=== PATIENT | male | born 1930 | race Caucasian/White ===

== ENCOUNTER 2016-07-01 04:53 | Emergency (ER) | payer MEDICARE, BC ==
[~2016-07-01 04:53] MED LIST: ACIP20TA6 PO; DOXE25CA2 PO; GABA300 PO; MECL-62 PO; METO50TA PO; VITA200017 PO; VITA500T49 PO; [UNRECOGNIZED DRUG - CODE] PO
[2016-07-01 04:55] VITALS: BP 165/80; PULSE 67; RESP 16; TEMP 98.4; O2SAT 96
--- NOTE | 2016-07-01 05:07 | PD ---
HPI . Head injury Chief Complaint: Fall Time Seen by Provider: 04:59 Travel History International Travel<30 days: No Contact w/Intl Traveler<30days: No Traveled to known affect area: No History of Present Illness HPI Patient presents to us by [facility] for evaluation of an injury to his head. The patient is unsteady on his feet. This has been a chronic issue for him for the last year or so. He got up during the middle of night to go to the bathroom and fell and hit his head on the top. There was no associated loss of consciousness. He states that he is not on any blood thinning medication. He has no symptoms of head injury such as blurred vision or nausea or confusion. He denies neck pain. He believes that his last tetanus shot was about 5 years ago. 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) Cardiac Catheterization: No Cardiovascular Problems: Yes (IRREGULAR HEARTBEAT, PVC'S) High Cholesterol: No Congestive Heart Failure: No Diabetes: No Endocrine: No Gastrointestinal Disorders: Yes (ACID REFLUX, HIATAL HERNIA, HX OF ESOPHAGEAL DILATION) Genitourinary: Yes (BPH) Hepatitis: No Hiatal Hernia: Yes Immune Disorder: No Medical other: Yes (POSSIBLE HERNIA L SIDE) Musculoskeletal: Yes (SCOLIOSIS, ARTHRITIS, LOWER BACK PAIN, STIFF NECK) Neurologic: No Psychiatric: Yes (SLIGHTLY CLAUSTROPHOBIC ) Reproductive: No Respiratory: Yes (SLEEP APNEA, HASN'T USED CPAP FOR SEVERAL YEARS) Thyroid Disease: No Past Surgical History Abdominal Surgery: Yes (EVELIN INGUINAL HERNIA REPAIRS) AICD: No Coronary Artery Bypass Graft: No Eye Surgery: Yes (BILATERAL CATARACT SURGERY) Joint Replacement: No Pacemaker: No Other Surgery: Yes (INGUINAL HERNIA REPAIR X 2) Social History Alcohol Use: Yes (OCC) Tobacco Use: No Substance Use: No Allergies-Medications (Allergen,Severity, Reaction): Coded Allergies: Penicillin (Unverified Adverse Reaction, Intermediate, STOMACH CRAMPING, ) Reported Meds & Prescriptions Reported Meds & Active Scripts Active Reported Namenda (Memantine) 10 Mg Tab 10 Mg PO BID Levothyroxine (Levothyroxine Sodium) 25 Mcg Tab 25 Mcg PO DAILY Citrucel (Methylcellulose) 500 Mg Tab 2 Tab PO DAILY PRN Vitamin B-12 (Cyanocobalamin) 500 Mcg Tab 500 Mcg PO DAILY Vitamin D (Cholecalciferol) 1,000 Unit Tab 1,000 Units PO DAILY Aciphex (Rabeprazole Sodium) 20 Mg Tab 20 Mg PO DAILY Metoprolol Tartrate 25 Mg Tab 25 Mg PO DAILY Neurontin (Gabapentin) 600 Mg Tab 600 Mg PO DAILY Doxepin (Doxepin HCl) 75 Mg Cap 75 Mg PO DAILY Review of Systems Except as stated in HPI: all other systems reviewed are Neg General / Constitutional: No: Fever, Chills Eyes: No: Blurred Vision HENT: Positive: Headaches, No: Lightheadedness Cardiovascular: No: Chest Pain or Discomfort Respiratory: No: Shortness of Breath Gastrointestinal: No: Nausea, Vomiting, Diarrhea Genitourinary: Positive: Nocturia Neurologic: Positive: Other (unsteady on his feet) Physical Exam Narrative GENERAL: Pleasant, elderly man who is in no acute distress. SKIN: Warm and dry. 2 cm laceration on the top of his head HEAD: Atraumatic. Normocephalic. No contusion or skull deformity noted. EYES: Pupils equal and round. Extraocular movements are intact. ENT: No nasal bleeding or discharge. Mucous membranes pink and moist. NECK: Trachea midline. Neck is nontender with full range of motion. CARDIOVASCULAR: Regular rate and rhythm. RESPIRATORY: No accessory muscle use. GASTROINTESTINAL: Abdomen soft, non-tender, nondistended. MUSCULOSKELETAL: No obvious deformities. No edema. NEUROLOGICAL: Awake and alert. No obvious cranial nerve deficits. Motor grossly within normal limits. Normal speech. PSYCHIATRIC: Appropriate mood and affect; insight and judgment normal. Data Data Last Documented VS Vital Signs Date Time Temp Pulse Resp B/P Pulse Ox O2 Delivery O2 Flow Rate FiO2 07/01/16 04:58 67 18 96 07/01/16 04:55 98.4 165/[address] Brain W/O Iv Contrast(Rout) (07/01/16 05:00) Lidocai-Epi 1%-1:100,000 Inj (Xylocaine- (07/01/16 06:00) MDM Medical Decision Making Medical Screen Exam Complete: Yes Emergency Medical Condition: Yes Differential Diagnosis My differential diagnosis of head trauma includes but is not limited to scalp contusion, concussion, intracerebral hemorrhage. Narrative Course Patient presents for evaluation of an injury to his head. He does not have any signs or symptoms suggestive of a closed head injury. CT of his head is negative for acute injury. Procedures Procedure Narrative LACERATION LOCATION: Scalp LENGTH: 2 cm NUMBER OF STITCHES/RASHMI: 2 REPAIR: The area of the laceration was prepped with Betadine and sterilely draped. The laceration was infiltrated with 4 cc of 1% lidocaine with epi. The wound was closed using 2 rashmi. This was a single layer repair. Patient tolerated the procedure well. Diagnosis Primary Impression: Scalp laceration Qualified Code: S01.01XA - Scalp laceration, initial encounter Patient Instructions: General Instructions, Laceration (DC) Additional Instructions: Clean the wound twice daily with soap and water. Apply a thin layer of Neosporin ointment after you wash it. See your doctor in 7 days for staple removal. Seek care sooner for redness, drainage, warmth, unusual pain. Disposition: 01 DISCHARGE HOME Condition: Stable Marcelle Salamanca MD Jul 01, 2016 05:07
[2016-07-01] MEDS ORDERED: VITA100064 PO (05:08)
[2016-07-01] MEDS ORDERED: NAME10TA PO (05:08)
[2016-07-01] MEDS ORDERED: METO25TA3 PO (05:08)
[2016-07-01] MEDS ORDERED: LEVO25TA4 PO (05:08)
[2016-07-01] MEDS ORDERED: DOXE75CA2 PO (05:08)
[2016-07-01] MEDS ORDERED: ACIP20TA6 PO (05:08)
[2016-07-01] MEDS ORDERED: NEUR600T PO (05:08)
[2016-07-01] MEDS ORDERED: VITA500T4 PO (05:08)
[2016-07-01] MEDS ORDERED: CITR500T PO (05:08)
--- NOTE | 2016-07-01 05:37 | RADRPT ---
EXAM DATE/TIME: 07/01/2016 05:20 [facility] COMPARISON: No previous studies available for comparison. INDICATIONS : Fall, head pain. RADIATION DOSE: 42.37 CTDIvol (mGy) MEDICAL HISTORY : Cardiovascular disease. Gastroesophageal reflux disease. hiatal hernia, melanoma SURGICAL HISTORY : inguinal hernia repair. ENCOUNTER: Initial ACUITY: 1 day PAIN SCALE: 8/10 LOCATION: cranial TECHNIQUE: Multiple contiguous axial images were obtained of the head. Using automated exposure control and adj ustment of the mA and/or kV according to patient size, radiation dose was kept as low as reasonably a chievable to obtain optimal diagnostic quality images. FINDINGS: CEREBRUM: The ventricles are normal for age. No evidence of midline shift, mass lesion, hemorrhage or acute in farction. No extra-axial fluid collections are seen. POSTERIOR FOSSA: The cerebellum and brainstem are intact. The 4th ventricle is midline. The cerebellopontine angle i s unremarkable. EXTRACRANIAL: Polyps or retention cysts in the maxillary sinuses. SKULL: The calvaria is intact. No evidence of skull fracture. CONCLUSION: No acute intracranial findings. Juan Luis Chacko MD on July 01, 2016 at 5:34 Board Certified Radiologist. This report was verified electronically.
[2016-07-01] MEDS ORDERED: LIDOCAINE 1%/EPINEPHrine 1:100,000 SOLN 20 ML VIAL INFIL ONE (06:00)
== END 2016-07-01 06:39 | disposition home or self-care (01) ==
LOC: NEPC 04:53
DX: S01.01XA Laceration without foreign body of scalp, initial encounter (principal); N40.0 Benign prostatic hyperplasia without lower urinary tract symptoms; G47.30 Sleep apnea, unspecified; K21.9 Gastro-esophageal reflux disease without esophagitis; W19.XXXA Unspecified fall, initial encounter; Y92.009 Unspecified place in unspecified non-institutional (private) residence as the place of occurrence of the external cause; Y99.8 Other external cause status
CPT/HCPCS: 12001; 70450

== ENCOUNTER 2016-12-23 06:34 | Emergency (ER) | payer MEDICARE, BC ==
[~2016-12-23 06:34] MED LIST changes: +CITR500T PO; -DOXE25CA2 PO; +DOXE75CA2 PO; -GABA300 PO; +LEVO25TA4 PO; -MECL-62 PO; +METO25TA3 PO; -METO50TA PO; +NAME10TA PO; +NEUR600T PO; +VITA100064 PO; -VITA200017 PO; +VITA500T4 PO; -VITA500T49 PO; -[UNRECOGNIZED DRUG - CODE] PO
[2016-12-23 06:35] VITALS: BP 165/76; PULSE 78; RESP 16; TEMP 97.8; O2SAT 95
--- NOTE | 2016-12-23 07:06 | PD ---
HPI Chief Complaint: Fall Time Seen by Provider: 06:55 Travel History International Travel<30 days: No Contact w/Intl Traveler<30days: No Traveled to known affect area: No History of Present Illness HPI The patient is a 86-year-old male who presents to emergency department after mechanical fall. The patient states she fell earlier today in the bathroom, striking his head on either the tub or tile floor. The patient denies any loss of consciousness, does complain of a mild headache. He does note a laceration to the posterior aspect of the head, is unsure of his last tetanus shot. The patient denies any acute neck pain or back pain, does have a history of scoliosis with chronic pain. The patient denies any upper or lower extremity pain. He denies any loss of consciousness and denies taking any anticoagulants. Symptoms are mild, exacerbated after falling, and there are no acute alleviating factors. Patient denies any chest pain, palpitations, shortness breath, nausea, or vomiting. 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) Cardiac Catheterization: No Cardiovascular Problems: Yes (IRREGULAR HEARTBEAT, PVC'S) High Cholesterol: No Congestive Heart Failure: No Diabetes: No Endocrine: No Gastrointestinal Disorders: Yes (ACID REFLUX, HIATAL HERNIA, HX OF ESOPHAGEAL DILATION) Genitourinary: Yes (BPH) Hepatitis: No Hiatal Hernia: Yes Immune Disorder: No Medical other: Yes (POSSIBLE HERNIA L SIDE) Musculoskeletal: Yes (SCOLIOSIS, ARTHRITIS, LOWER BACK PAIN, STIFF NECK) Neurologic: No Psychiatric: Yes (SLIGHTLY CLAUSTROPHOBIC ) Reproductive: No Respiratory: Yes (SLEEP APNEA, HASN'T USED CPAP FOR SEVERAL YEARS) Thyroid Disease: No Past Surgical History Abdominal Surgery: Yes (EVELIN INGUINAL HERNIA REPAIRS) AICD: No Coronary Artery Bypass Graft: No Eye Surgery: Yes (BILATERAL CATARACT SURGERY) Joint Replacement: No Pacemaker: No Other Surgery: Yes (INGUINAL HERNIA REPAIR X 2) Social History Alcohol Use: Yes (OCC) Tobacco Use: No Substance Use: No Allergies-Medications (Allergen,Severity, Reaction): Coded Allergies: penicillin G (Unverified Adverse Reaction, Intermediate, STOMACH CRAMPING , 12/23/16) Reported Meds & Prescriptions Reported Meds & Active Scripts Active Reported Namenda (Memantine) 10 Mg Tab 10 Mg PO BID Levothyroxine (Levothyroxine Sodium) 25 Mcg Tab 25 Mcg PO DAILY Citrucel (Methylcellulose) 500 Mg Tab 2 Tab PO DAILY PRN Vitamin B-12 (Cyanocobalamin) 500 Mcg Tab 500 Mcg PO DAILY Vitamin D (Cholecalciferol) 1,000 Unit Tab 1,000 Units PO DAILY Aciphex (Rabeprazole Sodium) 20 Mg Tab 20 Mg PO DAILY Metoprolol Tartrate 25 Mg Tab 25 Mg PO DAILY Neurontin (Gabapentin) 600 Mg Tab 600 Mg PO DAILY Doxepin (Doxepin HCl) 75 Mg Cap 75 Mg PO DAILY Review of Systems Except as stated in HPI: all other systems reviewed are Neg HENT: Positive: Headaches, No: Lightheadedness, Neck Pain Cardiovascular: No: Chest Pain or Discomfort, Palpitations, Syncope Respiratory: No: Shortness of Breath Gastrointestinal: No: Nausea, Vomiting, Abdominal Pain Musculoskeletal: No: Pain Neurologic: Positive: Headache, No: Syncope, Focal Abnormalities, Change in Mentation Physical Exam Narrative GENERAL: Awake, alert, pleasant 86-year-old male who appears his stated age and is in no acute respiratory distress. SKIN: Focused skin assessment warm/dry. HEAD: 2.5 cm laceration to the occipital region which is diagonal, no acute bleeding. EYES: Pupils equal and round. No injection or drainage. ENT: No nasal bleeding or discharge. Mucous membranes pink and moist. NECK: Trachea midline. No JVD. No tenderness of the cervical vertebrae. CARDIOVASCULAR: Regular rate and rhythm. No murmur appreciated. RESPIRATORY: No accessory muscle use. Clear to auscultation. Breath sounds equal bilaterally. GASTROINTESTINAL: Abdomen soft, non-tender, nondistended. Back: Scoliosis noted. No tenderness over the thoracic or lumbar vertebra. MUSCULOSKELETAL: No obvious deformities. No clubbing. No cyanosis. No edema. Moves all 4 extremities without difficulty. NEUROLOGICAL: Awake and alert. No obvious cranial nerve deficits. Motor grossly within normal limits. Normal speech. Nonfocal. PSYCHIATRIC: Appropriate mood and affect; insight and judgment normal. Data Data Last Documented VS Vital Signs Date Time Temp Pulse Resp B/P (MAP) Pulse Ox O2 Delivery O2 Flow Rate FiO2 12/23/16 07:26 59 16 160/74 (102) 96 Room Air 12/23/16 06:[address] Brain W/O Iv Contrast(Rout) (9/7/17 ) Tetanus/Diphtheria Tox Adult (Tetanus/Di (12/23/16 07:15) MDM Medical Decision Making Medical Screen Exam Complete: Yes Emergency Medical Condition: Yes Medical Record Reviewed: Yes Interpretation(s) CT of the head reveals tiny old lacunar infarct within the anterior limb of the left internal capsule. Minimal periventricular and subcortical white matter small vessel ischemic changes bilaterally. No acute infarct, acute hemorrhage, mass effect, or extra-axial fluid collections. Mucous retention cyst within the right maxillary sinus. Differential Diagnosis Differential diagnosis includes skull fracture, laceration, closed head injury, intracranial hemorrhage, subarachnoid hemorrhage, abrasion. Narrative Course CT of the brain was obtained. The patient's tetanus shot was updated. The patient's laceration was irrigated with sterile saline and cleaned with Betadine and irrigated once again. The laceration was closed in single layer fashion using rashmi. CT reveals chronic changes, no acute infarct, hemorrhage , or mass effect. The patient will be provided a copy of his CT results at discharge. He is advised to have his rashmi removed in 5-7 days. Return if symptoms worsen or progress. Procedures Procedure Narrative LACERATION LOCATION: Occipital scalp LENGTH: 2.5 cm NUMBER OF STITCHES/RASHMI: 4 REPAIR: The area of the laceration was prepped with Betadine and sterilely draped. The wound was copiously irrigated and explored without evidence of foreign body, tendon injury or neurovascular injury. The wound was closed using rashmi. This was a single layer repair. A sterile dressing was applied. The patient was advised to keep the dressing clean and dry. Patient tolerated the procedure well. Diagnosis Primary Impression: Scalp laceration Qualified Codes: S01.01XA - Laceration without foreign body of scalp, initial encounter Additional Impression: Closed head injury Qualified Codes: S09.90XA - Unspecified injury of head, initial encounter Patient Instructions: General Instructions Additional Instructions: Staple removal 5-7 days. Return if symptoms worsen or progress. Please provide the patient a copy of his CT results at discharge. Follow-up with your primary physician. Med/Other Pt SpecificInfo: No Change to Meds Disposition: 01 DISCHARGE HOME Condition: Stable Casimiro Pearson MD Dec 23, 2016 07:06
[2016-12-23] MEDS ORDERED: TETANUS/DIPHTHERIA TOXOID ADULT 0.5 ML VIAL IM ONE (07:15)
[2016-12-23 07:26] VITALS: BP 160/74; PULSE 59; RESP 16; O2SAT 96
--- NOTE | 2016-12-23 08:23 | RADRPT ---
EXAM DATE/TIME: 12/23/2016 07:34 [facility] COMPARISON: CT BRAIN W/O CONTRAST, July 01, 2016, 5:20. INDICATIONS : Trauma, fall backwards. RADIATION DOSE: 69.21 CTDIvol (mGy) MEDICAL HISTORY : None SURGICAL HISTORY : None. ENCOUNTER: Initial ACUITY: 1 day PAIN SCALE: 4/10 LOCATION: cranial TECHNIQUE: Multiple contiguous axial images were obtained of the head. Using automated exposure control and adj ustment of the mA and/or kV according to patient size, radiation dose was kept as low as reasonably a chievable to obtain optimal diagnostic quality images. DICOM format image data is available electro nically for review and comparison. FINDINGS: CEREBRUM: The ventricles are normal for age. No evidence of midline shift, mass lesion, hemorrhage or acute in farction. No extra-axial fluid collections are seen. Tiny old lacunar infarct is noted within the an terior limb of the left internal capsule. Minimal periventricular and subcortical white matter small vessel ischemic changes are noted bilaterally. POSTERIOR FOSSA: The cerebellum and brainstem are intact. The 4th ventricle is midline. The cerebellopontine angle i s unremarkable. EXTRACRANIAL: The visualized portion of the orbits is intact. Mucous retention cyst is noted within the right maxil jamel sinus. SKULL: The calvaria is intact. No evidence of skull fracture. CONCLUSION: 1. 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 2. Minimal periventricular and subcortical white matter small vessel ischemic changes bilaterally. 3. No acute infarct, acute hemorrhage, mass effect or extra-axial fluid collections. 4. Mucous retention cyst within the right maxillary sinus. Cornell Bearden MD on December 23, 2016 at 8:18 Board Certified Radiologist. This report was verified electronically.
[2016-12-23 08:54] VITALS: BP 153/72
== END 2016-12-23 08:55 | disposition home or self-care (01) ==
LOC: NEPE 06:34
DX: S01.01XA Laceration without foreign body of scalp, initial encounter (principal); W19.XXXA Unspecified fall, initial encounter; Z23 Encounter for immunization
CPT/HCPCS: 12001; 70450; 90471; 90714

== ENCOUNTER 2017-02-03 21:28 | Emergency (ER) | payer MEDICARE, BC ==
[~2017-02-03] VITALS: Ht 182.9 cm; Wt 63.5 kg
[2017-02-03 21:33] VITALS: BP 160/88; PULSE 83; RESP 14; TEMP 98.1; O2SAT 96
[2017-02-03] MEDS ORDERED: SODIUM CHLORIDE 0.9% FLUSH 10 ML FLUSH IV FLUSH PRN (21:45)
[2017-02-03] MEDS ORDERED: SODIUM CHLORID 0.9% 500 ML INJ 500 ML IV ONE (22:00)
[2017-02-03 22:02] VITALS: O2SAT 97
--- NOTE | 2017-02-03 22:08 | PD ---
HPI Chief Complaint: GI Complaint Time Seen by Provider: 21:44 Travel History International Travel<30 days: No Contact w/Intl Traveler<30days: No Traveled to known affect area: No History of Present Illness HPI Patient comes in complaining of rectal spasms, stool oozing out of him, and difficulty urinating that began this morning. Patient has a history of C. difficile 6 months ago. Patient denies any recent antibiotic use, fevers, abdominal pain, nausea, vomiting, chest pain, shortness breath, or back pain. Patient reports multiple falls over the past 6 months most recently 2 weeks ago. Patient denies any numbness or tingling anywhere. Patient denies anything making this better or worse. Patient states he was constipated yesterday and believes he may have strained to hard causing this to happen. Patient only complains of intermittent spasming in his rectum without radiation. Denies any other pain anywhere. 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) Cardiac Catheterization: No Cardiovascular Problems: Yes (IRREGULAR HEARTBEAT, PVC'S) High Cholesterol: No Congestive Heart Failure: No Diabetes: No Endocrine: No Gastrointestinal Disorders: Yes (ACID REFLUX, HIATAL HERNIA, HX OF ESOPHAGEAL DILATION) Genitourinary: Yes (BPH) Hepatitis: No Hiatal Hernia: Yes Immune Disorder: No Inguinal Hernia: Yes (REPAIR X3) Medical other: Yes (POSSIBLE HERNIA L SIDE) Musculoskeletal: Yes (SCOLIOSIS, ARTHRITIS, LOWER BACK PAIN, STIFF NECK) Psychiatric: Yes (SLIGHTLY CLAUSTROPHOBIC ) Respiratory: Yes (SLEEP APNEA, HASN'T USED CPAP FOR SEVERAL YEARS) Thyroid Disease: No Past Surgical History Abdominal Surgery: Yes (EVELIN INGUINAL HERNIA REPAIRS) AICD: No Coronary Artery Bypass Graft: No Eye Surgery: Yes (BILATERAL CATARACT SURGERY) Joint Replacement: No Pacemaker: No Social History Alcohol Use: Yes (OCC) Tobacco Use: No Substance Use: No Allergies-Medications (Allergen,Severity, Reaction): Coded Allergies: penicillin G (Unverified Adverse Reaction, Intermediate, STOMACH CRAMPING , 12/23/16) Reported Meds & Prescriptions Reported Meds & Active Scripts Active Reported Namenda (Memantine) 10 Mg Tab 10 Mg PO BID Levothyroxine (Levothyroxine Sodium) 25 Mcg Tab 25 Mcg PO DAILY Citrucel (Methylcellulose) 500 Mg Tab 2 Tab PO DAILY PRN Vitamin B-12 (Cyanocobalamin) 500 Mcg Tab 500 Mcg PO DAILY Vitamin D (Cholecalciferol) 1,000 Unit Tab 1,000 Units PO DAILY Aciphex (Rabeprazole Sodium) 20 Mg Tab 20 Mg PO DAILY Metoprolol Tartrate 25 Mg Tab 25 Mg PO DAILY Neurontin (Gabapentin) 600 Mg Tab 600 Mg PO DAILY Doxepin (Doxepin HCl) 75 Mg Cap 75 Mg PO DAILY Review of Systems Except as stated in HPI: all other systems reviewed are Neg Physical Exam Narrative GENERAL: Well-developed, well nourished, in no acute distress, and non-ill appearing. SKIN: Focused skin assessment warm and dry. HEAD: Atraumatic. Normocephalic. EYES: Pupils equal and round. EOMI. No scleral icterus. No injection or drainage. ENT: No nasal bleeding or discharge. Mucous membranes pink and moist. NECK: Trachea midline. Supple. No nuclear rigidity. CARDIOVASCULAR: Regular rate and rhythm. No murmur appreciated. RESPIRATORY: No accessory muscle use. No respiratory distress. Decreased breath sounds throughout. Breath sounds equal bilaterally. GASTROINTESTINAL: Abdomen soft, non-tender, nondistended, and no guarding. Hepatic and splenic margins not palpable. Normal bowel sounds 4. No pulsatile mass. RECTAL EXAM: No masses or tenderness, stool is brown. Patient has rectal tone but states he feels that he is not controlling it very well. MUSCULOSKELETAL: No obvious deformities. No clubbing. No cyanosis. No edema. Full range of motion. NEUROLOGICAL: Awake and alert. No obvious cranial nerve deficits. Motor grossly within normal limits. Normal speech. PSYCHIATRIC: Appropriate mood and affect; insight and judgment normal. Data Data Last Documented VS Vital Signs Date Time Temp Pulse Resp B/P (MAP) Pulse Ox O2 Delivery O2 Flow Rate FiO2 02/03/17 22:02 97 Room Air 02/03/17 21:33 98.1 83 14 160/88 (112) Orders Orders Complete Blood Count With Diff (02/03/17 21:44) Comprehensive Metabolic Panel (02/03/17 21:44) Lipase (02/03/17 21:44) Lactic Acid (02/03/17 21:44) Prothrombin Time / Inr (Pt) (02/03/17 21:44) Act Partial Throm Time (Ptt) (02/03/17 21:44) Urinalysis - C+S If Indicated (02/03/17 21:44) Ct Abd/Pel W/O Iv Contrast (02/03/17 21:44) Iv Access Insert/Monitor (02/03/17 21:44) Ecg Monitoring (02/03/17 21:44) Oximetry (02/03/17 21:44) Sodium Chloride 0.9% Flush (Ns Flush) (02/03/17 21:45) Electrocardiogram (02/03/17 21:44) Cath For Specimen (02/03/17 21:44) C Diff Toxin Pcr (02/03/17 21:44) Sodium Chlorid 0.9% 500 Ml Inj (Ns 500 M (02/03/17 22:00) Mri L Spine W&W/O Contrast (02/03/17 ) Labs Laboratory Tests Test 02/03/17 21:50 02/03/17 21:55 White Blood Count 8.8 TH/MM3 Red Blood Count 4.24 MIL/MM3 Hemoglobin 12.0 GM/DL Hematocrit 36.3 % Mean Corpuscular Volume 85.8 FL Mean Corpuscular Hemoglobin 28.4 PG Mean Corpuscular Hemoglobin Concent 33.1 % Red Cell Distribution Width 13.4 % Platelet Count 245 TH/MM3 Mean Platelet Volume 8.1 FL Neutrophils (%) (Auto) 83.3 % Lymphocytes (%) (Auto) 10.4 % Monocytes (%) (Auto) 5.7 % Eosinophils (%) (Auto) 0.1 % Basophils (%) (Auto) 0.5 % Neutrophils # (Auto) 7.3 TH/MM3 Lymphocytes # (Auto) 0.9 TH/MM3 Monocytes # (Auto) 0.5 TH/MM3 Eosinophils # (Auto) 0.0 TH/MM3 Basophils # (Auto) 0.0 TH/MM3 CBC Comment DIFF FINAL Differential Comment Prothrombin Time 11.1 SEC Prothromb Time International Ratio 1.0 RATIO Activated Partial Thromboplast Time 30.4 SEC Urine Color YELLOW Urine Turbidity CLEAR Urine pH 6.5 Urine Specific [place] 1.014 Urine Protein TRACE mg/dL Urine Glucose (UA) NEG mg/dL Urine Ketones 10 mg/dL Urine Occult Blood NEG Urine Nitrite NEG Urine Bilirubin NEG Urine Urobilinogen LESS THAN 2.0 MG/DL Urine Leukocyte Esterase NEG Urine RBC 3 /hpf Urine WBC 1 /hpf Urine Mucus FEW /lpf Microscopic Urinalysis Comment CULT NOT INDICATED Blood Urea Nitrogen 11 MG/DL Creatinine 0.57 MG/DL Random Glucose 89 MG/DL Albumin 3.9 GM/DL Calcium Level 8.7 MG/DL Aspartate Amino Transf (AST/SGOT) 21 U/L Sodium Level 129 MEQ/L Potassium Level 3.4 MEQ/L Chloride Level 94 MEQ/L Carbon Dioxide Level 25.4 MEQ/L Anion Gap 10 MEQ/L Estimat Glomerular Filtration Rate 136 ML/MIN Lipase 77 U/L Lactic Acid Level 1.1 mmol/L MDM Medical Decision Making Medical Screen Exam Complete: Yes Emergency Medical Condition: Yes Interpretation(s) EKG reviewed by Dr. Aguilar shows sinus rhythm with ventricular rate of 75. No STEMI. Differential Diagnosis C. difficile, diverticulitis, bowel obstruction, urinary retention, UTI, cauda equina syndrome, electrolyte Abnormality, other Narrative Course Patient was seen and examined. Initial laboratory and radiological studies were ordered. Patient was given IV fluids. Patient signed out to Dr. Aguilar at the end of my shift. Please see her documentation for final diagnosis and disposition. [facility] Point of Care Internal Pos. & Neg. Controls: Passed Fecal Specimen Occult Blood: Negative Comment Verbal consent was obtained. Digital rectal exam was performed. Stool specimen applied and test interpreted between 1 and 3 minutes of application and the result was negative. Internal Controls: Both positive and negative controls were validated. endodontist Delmis was present during this exam. Bryan Hernandez Feb 03, 2017 22:08
[2017-02-03 22:19] LABS: BLOOD, URINE NEG (NEG); COMMENT (UR) CULT NOT INDICATED; CULTURE IF INDICATED CULT NOT INDICATED; GLUCOSE,URINE NEG (NEG); KETONE, URINE 10 mg/dL (NEG); MUCUS URINE FEW /lpf (OCC); NITRITE,URINE NEG (NEG); PH, URINE 6.5 (5.0-8.5); URINE COLOR YELLOW (YELLW/STRAW)
[2017-02-03 22:23] LABS: AUTOMATED NEUTROPHIL # 7.3 TH/MM3 (1.8-7.7); BASOPHIL % 0.5 % (0.0-2.0); EOSINOPHIL % 0.1 % (0.0-4.0); HEMATOCRIT 36.3 % (39.0-51.0); HEMO FLAGS DIFF FINAL; LYMPH % 10.4 % (9.0-44.0); LYMPHOCYTE # 0.9 TH/MM3 (1.0-4.8); MEAN CELL VOLUME 85.8 FL (80.0-100.0); MEAN CORPUSCULAR HEMOGLOBIN 28.4 PG (27.0-34.0); MEAN CORPUSCULAR HGB CONC 33.1 % (32.0-36.0); MONO % 5.7 % (0.0-8.0); NEUT % 83.3 % (16.0-70.0); PLATELET COUNT 245 TH/MM3 (150-450); RED BLOOD COUNT 4.24 MIL/MM3 (4.50-5.90); RED CELL DISTRIBUTION WIDTH 13.4 % (11.6-17.2); WHITE BLOOD COUNT 8.8 TH/MM3 (4.0-11.0)
[2017-02-03 22:27] LABS: APTT (PATIENT) 30.4 SEC (24.3-30.1); PROTHROMBIN TIME - PATIENT 11.1 SEC (9.8-11.6)
[2017-02-03 22:31] LABS: ANION GAP 10 MEQ/L (5-15); AST (GOT) 21 U/L (15-37); BICARBONATE 25.4 MEQ/L (21.0-32.0); BLOOD UREA NITROGEN 11 MG/DL (7-18); CHLORIDE 94 MEQ/L (98-107); GLOMERULAR FILTRATION RATE 136 ML/MIN (>89); POTASSIUM 3.4 MEQ/L (3.5-5.1); SODIUM (NA) 129 MEQ/L (136-145)
[2017-02-03 22:35] LABS: ALKALINE PHOSPHATASE 76 U/L (45-117); ALT (GPT) 11 U/L (12-78); TOTAL BILIRUBIN ADULT 0.9 MG/DL (0.2-1.0)
--- NOTE | 2017-02-03 23:03 | RADRPT ---
EXAM DATE/TIME: 02/03/2017 22:45 [facility] COMPARISON: No previous studies available for comparison. INDICATIONS : Lower abdominal pain with diarrhea and dysuria. ORAL CONTRAST: No oral contrast ingested. RADIATION DOSE: 6.64 CTDIvol (mGy) MEDICAL HISTORY : Hernia, hiatal. Gastroesophageal reflux disease. Benign prostatic hyperplasia, (BPH)Scoliosis. SURGICAL HISTORY : Inguinal hernia repair. ENCOUNTER: Initial ACUITY: 1 day PAIN SCALE: 5/10 LOCATION: Bilateral lower quadrant TECHNIQUE: Volumetric scanning of the abdomen and pelvis was performed. Using automated exposure control and ad justment of the mA and/or kV according to patient size, radiation dose was kept as low as reasonably achievable to obtain optimal diagnostic quality images. DICOM format image data is available electro nically for review and comparison. FINDINGS: LOWER LUNGS: The visualized lower lungs are clear. LIVER: Homogeneous density without lesion. There is no dilation of the biliary tree. Multiple calcified gal lstones. SPLEEN: Normal size without lesion. PANCREAS: Within normal limits. KIDNEYS: Normal in size and shape. There is no mass, stone, or hydronephrosis. ADRENAL GLANDS: Within normal limits. VASCULAR: There is no aortic aneurysm. Atherosclerotic changes of the abdominal aorta. BOWEL/MESENTERY: Copious amount of stool throughout the large bowel. Scattered diverticulosis. There is no free intrap eritoneal air or fluid. ABDOMINAL WALL: Within normal limits. RETROPERITONEUM: There is no lymphadenopathy. BLADDER: No wall thickening or mass. REPRODUCTIVE: Within normal limits. INGUINAL: There is no lymphadenopathy or hernia. MUSCULOSKELETAL: Degenerative changes and scoliosis of the thoracolumbar spine. CONCLUSION: 1. Cholelithiasis. 2. Constipation and diverticulosis. No diverticulitis. 3. Degenerative changes and scoliosis. Roshan Ray MD on February 03, 2017 at 22:59 Board Certified Radiologist. This report was verified electronically.
--- NOTE | 2017-02-03 23:08 | RADRPT ---
EXAM DATE/TIME: 02/03/2017 22:26 [facility] COMPARISON: No previous studies available for comparison. INDICATIONS : Myelopathy. MEDICAL HISTORY : Sleep apnea. Gastroesophageal reflux disease. Benign prostatic hyperplasia, (BPH) Melanoma. Squamous cell carcinoma. SURGICAL HISTORY : Inguinal hernia repair. Cataracts. ENCOUNTER: Initial ACUITY: 1 day PAIN SCORE: 5/10 LOCATION: Lower back. TECHNIQUE: Multiplanar multisequence MRI of the lumbar spine was performed without contrast. FINDINGS: The most caudal appearing lumbar vertebra is numbered as L5. VERTEBRAE: Homogeneous signal, with the exception of degenerative endplate changes at L1 to, L2-3, L4-5 and L5-S 1 levels. Scoliotic changes. Degenerative disc disease at L2-3, L3-4, L4-5 and L5-S1 levels. Minimal retrolisthesis L5 on S1. 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 CONUS: Normal level and configuration. T12-L1: The thecal sac has a normal diameter. No evidence of disc bulge or protrusion. The neural foramina are patent bilaterally. L1-L2: Mild broad-based disc bulge abuts the thecal sac without canal stenosis. The neural foramina are pat ent bilaterally. L2-L3: Mild broad-based disc bulge abuts the thecal sac without canal stenosis. Mild neuroforaminal narrowin g bilaterally. L3-L4: Mild broad-based disc bulge abuts the thecal sac without canal stenosis. The neural foramina are pat ent bilaterally. L4-L5: Mild broad-based disc bulge abuts the thecal sac without canal stenosis. Mild left and moderate right narrowing of the neural foramen. L5-S1: Minimal retrolisthesis. Mild broad-based disc bulge abuts the thecal sac without canal stenosis. Mode rate narrowing of the neural foramen bilaterally but greater on the right. CONCLUSION: 1. Multilevel disc bulges without canal stenosis. 2. Scattered neural femoral narrowing as described above. 3. Scoliosis and chronic degenerative endplate changes at multiple levels as described above. Roshan Ray MD on February 03, 2017 at 23:02 Board Certified Radiologist. This report was verified electronically.
[2017-02-03 23:44] VITALS: BP 121/65; PULSE 76; RESP 16; O2SAT 97
[2017-02-04] MEDS ORDERED: METR-1 PO (01:31)
--- NOTE | 2017-02-04 01:32 | PD ---
Physical Exam Narrative I, Dr. Aguilar, have reviewed the advance practice practitioner's documentation and am in agreement, met with the patient face to face, made the diagnosis, and the medical decision making was done by me. *My assessment and Findings: Patient is a 86 year old male who comes in complaining of diarrhea and rectal spasm. Exam shows abdomen is soft and nontender. Patient is mentating well. Data Data Last Documented VS Vital Signs Date Time Temp Pulse Resp B/P (MAP) Pulse Ox O2 Delivery O2 Flow Rate FiO2 02/03/17 23:44 76 16 121/65 (83) 97 Room Air 02/03/17 21:33 98.1 Orders Orders Complete Blood Count With Diff (02/03/17 21:44) Comprehensive Metabolic Panel (02/03/17 21:44) Lipase (02/03/17 21:44) Lactic Acid (02/03/17 21:44) Prothrombin Time / Inr (Pt) (02/03/17 21:44) Act Partial Throm Time (Ptt) (02/03/17 21:44) Urinalysis - C+S If Indicated (02/03/17 21:44) Ct Abd/Pel W/O Iv Contrast (02/03/17 21:44) Iv Access Insert/Monitor (02/03/17 21:44) Ecg Monitoring (02/03/17 21:44) Oximetry (02/03/17 21:44) Sodium Chloride 0.9% Flush (Ns Flush) (02/03/17 21:45) Electrocardiogram (02/03/17 21:44) Cath For Specimen (02/03/17 21:44) C Diff Toxin Pcr (02/03/17 21:44) Sodium Chlorid 0.9% 500 Ml Inj (Ns 500 M (02/03/17 22:00) Mri L Spine W/O Contrast (02/03/17 ) Labs Laboratory Tests Test 02/03/17 21:50 02/03/17 21:55 White Blood Count 8.8 TH/MM3 Red Blood Count 4.24 MIL/MM3 Hemoglobin 12.0 GM/DL Hematocrit 36.3 % Mean Corpuscular Volume 85.8 FL Mean Corpuscular Hemoglobin 28.4 PG Mean Corpuscular Hemoglobin Concent 33.1 % Red Cell Distribution Width 13.4 % Platelet Count 245 TH/MM3 Mean Platelet Volume 8.1 FL Neutrophils (%) (Auto) 83.3 % Lymphocytes (%) (Auto) 10.4 % Monocytes (%) (Auto) 5.7 % Eosinophils (%) (Auto) 0.1 % Basophils (%) (Auto) 0.5 % Neutrophils # (Auto) 7.3 TH/MM3 Lymphocytes # (Auto) 0.9 TH/MM3 Monocytes # (Auto) 0.5 TH/MM3 Eosinophils # (Auto) 0.0 TH/MM3 Basophils # (Auto) 0.0 TH/MM3 CBC Comment DIFF FINAL Differential Comment Prothrombin Time 11.1 SEC Prothromb Time International Ratio 1.0 RATIO Activated Partial Thromboplast Time 30.4 SEC Urine Color YELLOW Urine Turbidity CLEAR Urine pH 6.5 Urine Specific [place] 1.014 Urine Protein TRACE mg/dL Urine Glucose (UA) NEG mg/dL Urine Ketones 10 mg/dL Urine Occult Blood NEG Urine Nitrite NEG Urine Bilirubin NEG Urine Urobilinogen LESS THAN 2.0 MG/DL Urine Leukocyte Esterase NEG Urine RBC 3 /hpf Urine WBC 1 /hpf Urine Mucus FEW /lpf Microscopic Urinalysis Comment CULT NOT INDICATED Blood Urea Nitrogen 11 MG/DL Creatinine 0.57 MG/DL Random Glucose 89 MG/DL Total Protein 6.7 GM/DL Albumin 3.9 GM/DL Calcium Level 8.7 MG/DL Alkaline Phosphatase 76 U/L Aspartate Amino Transf (AST/SGOT) 21 U/L Alanine Aminotransferase (ALT/SGPT) 11 U/L Total Bilirubin 0.9 MG/DL Sodium Level 129 MEQ/L Potassium Level 3.4 MEQ/L Chloride Level 94 MEQ/L Carbon Dioxide Level 25.4 MEQ/L Anion Gap 10 MEQ/L Estimat Glomerular Filtration Rate 136 ML/MIN Lipase 77 U/L Lactic Acid Level 1.1 mmol/L [facility] Supervised Visit with MARYANN: Yes Narrative Course CT abd/pelvis shows no acute abnormalities. MRI Lumbar spine shows no cord compression. Labs show Sodium 129, no other acute abnormalities. Patient advised to drink plenty of fluids. Given a prescription for Flagyl. Advised to follow up with his primary doctor. Advised to return to the ED as needed for any worsening symptoms. Diagnosis Primary Impression: Diarrhea Qualified Codes: R19.7 - Diarrhea, unspecified Patient Instructions: Acute Diarrhea (ED), General Instructions Additional Instruction: Drink plenty of fluids. Follow-up with her doctor. Take all the antibiotic. Return to the ED as needed for any worsening symptoms. Scripts Metronidazole (Flagyl) 500 Mg Tab 500 MG PO TID for Infection for 7 Days, TAB 0 Refills Prov: Erika Aguilar MD 02/04/17 Disposition: 01 DISCHARGE HOME Condition: Stable Erika Aguilar MD Feb 04, 2017 01:32
--- NOTE | 2017-02-04 21:25 | EKG ---
Date Performed: 02/03/2017 Time Performed: 22:13:18 PTAGE: 86 years EKG: Sinus rhythm NORMAL ECG PREVIOUS TRACING : 02/03/2017 21.37 Compared to prior tracing no significant change DOCTOR: Dami David Interpretating Date/Time 02/04/2017 21:25:04
--- NOTE | 2017-02-04 21:28 | EKG ---
Date Performed: 02/03/2017 Time Performed: 21:37:40 PTAGE: 86 years EKG: Sinus rhythm WITH SINUS ARRHYTHMIA NORMAL ECG PREVIOUS TRACING : 11/08/2013 13.28 Compared to prior tracing no significant change DOCTOR: Dami David Interpretating Date/Time 02/04/2017 21:26:36
[2017-02-05] MEDS ORDERED: ZOFR4TAB PO (00:14)
[2017-02-05] MEDS ORDERED: NORC5TAB PO (00:15)
== END 2017-02-04 02:08 | disposition home or self-care (01) ==
LOC: NEPC 21:28
DX: K59.4 Anal spasm (principal); R19.7 Diarrhea, unspecified; R29.6 Repeated falls; I49.8 Other specified cardiac arrhythmias; Z85.820 Personal history of malignant melanoma of skin
CPT/HCPCS: 72148; 74176; 80053; 81001; 83605; 83690; 85025; 85610; 85730; 93005; 96360; 99285; J7040; P9612

== ENCOUNTER 2017-02-04 22:53 | Emergency (ER) | payer MEDICARE, BC ==
[~2017-02-04 22:53] MED LIST changes: +METR-1 PO
[2017-02-04] MEDS ORDERED: SODIUM CHLORIDE 0.9% FLUSH 10 ML FLUSH IV FLUSH PRN (23:00)
[2017-02-04 23:09] VITALS: BP 134/76; PULSE 90; RESP 16; TEMP 98; O2SAT 100
[2017-02-04 23:16] VITALS: PULSE 90; RESP 16; O2SAT 100
[2017-02-04 23:27] LABS: AUTOMATED NEUTROPHIL # 9.4 TH/MM3 (1.8-7.7); BASOPHIL % 0.2 % (0.0-2.0); HEMATOCRIT 38.5 % (39.0-51.0); HEMO FLAGS DIFF FINAL; LYMPH % 9.7 % (9.0-44.0); LYMPHOCYTE # 1.1 TH/MM3 (1.0-4.8); MEAN CELL VOLUME 86.3 FL (80.0-100.0); MEAN CORPUSCULAR HEMOGLOBIN 28.3 PG (27.0-34.0); MEAN CORPUSCULAR HGB CONC 32.8 % (32.0-36.0); MONO % 6.6 % (0.0-8.0); NEUT % 83.5 % (16.0-70.0); PLATELET COUNT 273 TH/MM3 (150-450); RED BLOOD COUNT 4.46 MIL/MM3 (4.50-5.90); RED CELL DISTRIBUTION WIDTH 13.5 % (11.6-17.2); WHITE BLOOD COUNT 11.3 TH/MM3 (4.0-11.0)
--- NOTE | 2017-02-04 23:28 | PD ---
HPI Chief Complaint: GI Complaint Time Seen by Provider: 22:57 Travel History International Travel<30 days: No Contact w/Intl Traveler<30days: No Traveled to known affect area: No History of Present Illness HPI Patient is an 86-year-old male presents emergency department for second evaluation in 2 days for diarrhea. Conveyed by his . He states since leaving the hospital yesterday he's been having increasing cramping in the left lower quadrant. Patient had complete workup yesterday including blood abdominal CT. Patient was prescribed Flagyl which she has not tried taking because he states he doesn't think he keep any food down. Also endorsing some mild nausea. States his diarrhea has been dark brown. Has a history of C. difficile in the past. Symptoms are mild to moderate, gradually worsening, context as above, there is associated nausea without vomiting, no fevers. 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) Cardiac Catheterization: No Cardiovascular Problems: Yes (IRREGULAR HEARTBEAT, PVC'S) High Cholesterol: No Congestive Heart Failure: No Diabetes: No Endocrine: No Gastrointestinal Disorders: Yes (ACID REFLUX, HIATAL HERNIA, HX OF ESOPHAGEAL DILATION) Genitourinary: Yes (BPH) Hepatitis: No Hiatal Hernia: Yes Immune Disorder: No Inguinal Hernia: Yes (REPAIR X3) Medical other: Yes (POSSIBLE HERNIA L SIDE) Musculoskeletal: Yes (SCOLIOSIS, ARTHRITIS, LOWER BACK PAIN, STIFF NECK) Psychiatric: Yes (SLIGHTLY CLAUSTROPHOBIC ) Respiratory: Yes (SLEEP APNEA, HASN'T USED CPAP FOR SEVERAL YEARS) Thyroid Disease: No Past Surgical History Abdominal Surgery: Yes (EVELIN INGUINAL HERNIA REPAIRS) AICD: No Coronary Artery Bypass Graft: No Eye Surgery: Yes (BILATERAL CATARACT SURGERY) Joint Replacement: No Pacemaker: No Social History Alcohol Use: Yes (OCC) Tobacco Use: No Substance Use: No Allergies-Medications (Allergen,Severity, Reaction): Coded Allergies: penicillin G (Unverified Adverse Reaction, Intermediate, STOMACH CRAMPING , 02/04/17) Reported Meds & Prescriptions Reported Meds & Active Scripts Active Freedom (Hydrocodone-Acetaminophen) 5-325 mg Tab 1 Tab PO Q6H PRN Zofran (Ondansetron HCl) 4 Mg Tab 4 Mg PO Q6HR PRN Flagyl (Metronidazole) 500 Mg Tab 500 Mg PO TID 7 Days Reported Namenda (Memantine) 10 Mg Tab 10 Mg PO BID Levothyroxine (Levothyroxine Sodium) 25 Mcg Tab 25 Mcg PO DAILY Citrucel (Methylcellulose) 500 Mg Tab 2 Tab PO DAILY PRN Vitamin B-12 (Cyanocobalamin) 500 Mcg Tab 500 Mcg PO DAILY Vitamin D3 (Cholecalciferol) 1,000 Unit Tab 1,000 Units PO DAILY Aciphex (Rabeprazole Sodium) 20 Mg Tab 20 Mg PO DAILY Metoprolol Tartrate 25 Mg Tab 25 Mg PO DAILY Neurontin (Gabapentin) 600 Mg Tab 600 Mg PO DAILY Doxepin (Doxepin HCl) 75 Mg Cap 75 Mg PO DAILY Review of Systems Except as stated in HPI: all other systems reviewed are Neg Physical Exam Narrative GENERAL: Well-developed well-nourished no obvious distress SKIN: Focused skin assessment warm/dry. HEAD: Atraumatic. Normocephalic. EYES: Pupils equal and round. No scleral icterus. No injection or drainage. ENT: No nasal bleeding or discharge. Mucous membranes pink and moist. NECK: Trachea midline. No JVD. CARDIOVASCULAR: Regular rate and rhythm. No murmur appreciated. RESPIRATORY: No accessory muscle use. Clear to auscultation. Breath sounds equal bilaterally. GASTROINTESTINAL: Abdomen soft, non-tender, nondistended. Hepatic and splenic margins not palpable. No rebound no percussive tenderness, Rectal: Rectal exam shows soft stool in the rectal vault that is formed. Hemoccult negative, no tenderness, no rectal fissure, no hemorrhoids. MUSCULOSKELETAL: No obvious deformities. No clubbing. No cyanosis. No edema. NEUROLOGICAL: Awake and alert. No obvious cranial nerve deficits. Motor grossly within normal limits. Normal speech. PSYCHIATRIC: Appropriate mood and affect; insight and judgment normal. Data Data Last Documented VS Vital Signs Date Time Temp Pulse Resp B/P (MAP) Pulse Ox O2 Delivery O2 Flow Rate FiO2 02/04/17 23:16 90 16 100 Room Air 02/04/17 23:09 98.0 134/76 (95) Orders Orders Basic Metabolic Panel (Bmp) (02/04/17 22:58) Complete Blood Count With Diff (02/04/17 22:58) Iv Access Insert/Monitor (02/04/17 22:58) Ecg Monitoring (02/04/17 22:58) Oximetry (02/04/17 22:58) Sodium Chloride 0.9% Flush (Ns Flush) (02/04/17 23:00) C Diff Toxin Pcr (02/04/17 22:58) Tramadol (Ultram) (02/04/17 23:30) Sodium Chlorid 0.9% 500 Ml Inj (Ns 500 M (02/04/17 23:30) Abdomen, Kub Only (02/04/17 ) Ed Discharge Order (02/05/17 00:15) Labs Laboratory Tests Test 02/04/17 23:00 White Blood Count 11.3 TH/MM3 Red Blood Count 4.46 MIL/MM3 Hemoglobin 12.6 GM/DL Hematocrit 38.5 % Mean Corpuscular Volume 86.3 FL Mean Corpuscular Hemoglobin 28.3 PG Mean Corpuscular Hemoglobin Concent 32.8 % Red Cell Distribution Width 13.5 % Platelet Count 273 TH/MM3 Mean Platelet Volume 7.8 FL Neutrophils (%) (Auto) 83.5 % Lymphocytes (%) (Auto) 9.7 % Monocytes (%) (Auto) 6.6 % Eosinophils (%) (Auto) 0.0 % Basophils (%) (Auto) 0.2 % Neutrophils # (Auto) 9.4 TH/MM3 Lymphocytes # (Auto) 1.1 TH/MM3 Monocytes # (Auto) 0.7 TH/MM3 Eosinophils # (Auto) 0.0 TH/MM3 Basophils # (Auto) 0.0 TH/MM3 CBC Comment DIFF FINAL Differential Comment Blood Urea Nitrogen 12 MG/DL Creatinine 0.76 MG/DL Random Glucose 95 MG/DL Calcium Level 8.9 MG/DL Sodium Level 128 MEQ/L Potassium Level 4.3 MEQ/L Chloride Level 95 MEQ/L Carbon Dioxide Level 24.3 MEQ/L Anion Gap 9 MEQ/L Estimat Glomerular Filtration Rate 98 ML/MIN MDM Medical Decision Making Medical Screen Exam Complete: Yes Emergency Medical Condition: Yes Differential Diagnosis Diarrhea, C. difficile, electrolyte abnormality, mild dehydration. Narrative Course Patient roomed in emergency department, he appears well and in no distress, labs do show some mild hyponatremia. A single view of the abdomen was obtained which does show formed stool throughout the colon, possible he is having overflow diarrhea on top of chronic constipation. I recommended against Imodium which she's been using at home without relief and recommended fiber and MiraLAX instead. He is not impacted by her rectal exam, he is not faded, he is able to tolerate by mouth fluids in the emergency department. Think is reasonable for him to treat with Flagyl empirically however a C. difficile specimen was sent. Given he has formed stool high in the doubt C. difficile infection. Discussed he needs to follow up with his primary care physician, discussed return to ED criteria. He is stable for discharge. Diagnosis Primary Impression: Alternating constipation and diarrhea Additional Impression: Abdominal pain Referrals: Steven Earl MD Additional Instructions: Recommend fiber, follow-up with your primary care physician and a plumbing assembler installer. Take antibiotics as prescribed. Med/Other Pt SpecificInfo: Prescription(s) given Scripts Hydrocodone-Acetaminophen (Freedom) 5-325 mg Tab 1 TAB PO Q6H Y for PAIN, #10 TAB 0 Refills Prov: Cornell Garcia MD 02/05/17 Ondansetron (Zofran) 4 Mg Tab 4 MG PO Q6HR Y for NAUSEA OR VOMITING, #20 TAB 0 Refills Prov: Cornell Garcia MD 02/05/17 Disposition: 01 DISCHARGE HOME Condition: Stable Cornell Garcia MD Feb 04, 2017 23:28
[2017-02-04] MEDS ORDERED: traMADol HCL 50 MG TAB PO ONE (23:30)
[2017-02-04] MEDS ORDERED: SODIUM CHLORID 0.9% 500 ML INJ 500 ML IV ONE (23:30)
[2017-02-04 23:50] LABS: BICARBONATE 24.3 MEQ/L (21.0-32.0)
--- NOTE | 2017-02-05 00:02 | RADRPT ---
EXAM DATE/TIME: 02/04/2017 23:32 [facility] COMPARISON: No previous studies available for comparison. INDICATIONS : Abdomen pain. MEDICAL HISTORY : Hernia, hiatal. Gastroesophageal reflux disease. Benign prostatic hyperplasia. Scoliosis. SURGICAL HISTORY : Hernia repair, Inguinal. ENCOUNTER: Initial ACUITY: 2 days PAIN SCORE: 10/10 LOCATION: Inferior abdomen, bladder, & penis. FINDINGS: 2 AP supine views of the abdomen and pelvis were obtained and demonstrate a large amount of stool thr oughout the colon. There is no free air or mass effect. There are no abnormal calcifications. There i s a moderate scoliosis of the thoracic and lumbar spine with degenerative disc change. The bony struc tures are otherwise unremarkable. CONCLUSION: Large amount of stool throughout the colon most characteristic of constipation. Navjot Gonzalez MD on February 05, 2017 at 0:00 Board Certified Radiologist. This report was verified electronically.
[2017-02-05 00:05] LABS: POTASSIUM 4.3 MEQ/L (3.5-5.1)
[2017-02-05] MEDS ORDERED: ZOFR4TAB PO (00:14)
[2017-02-05] MEDS ORDERED: NORC5TAB PO (00:15)
== END 2017-02-05 00:35 | disposition home or self-care (01) ==
LOC: NEPC 22:53
DX: R19.7 Diarrhea, unspecified (principal); K59.00 Constipation, unspecified; R10.32 Left lower quadrant pain
CPT/HCPCS: 74000; 80048; 85025; 96360; 99284; J7040

== ENCOUNTER 2017-02-25 08:13 | Inpatient (IN) | payer MEDICARE, BC ==
[~2017-02-25] VITALS: Ht 182.9 cm; Wt 65.0 kg
[2017-02-25] VITALS (9 sets, daily range): BP systolic 123–184; BP diastolic 66–86; PULSE 69–82; RESP 16–20; TEMP 97.7–97.9; O2SAT 77–98
[~2017-02-25 08:13] MED LIST changes: +ACIP20TA19 PO; -ACIP20TA6 PO; +NORC5TAB PO; +ZOFR4TAB PO
[2017-02-25 09:03] LABS: AUTOMATED NEUTROPHIL # 4.2 TH/MM3 (1.8-7.7); BASOPHIL # 0.1 TH/MM3 (0-0.2); BASOPHIL % 1.5 % (0.0-2.0); EOSINOPHIL # 0.1 TH/MM3 (0-0.4); EOSINOPHIL % 1.6 % (0.0-4.0); HEMATOCRIT 36.4 % (39.0-51.0); HEMO FLAGS DIFF FINAL; LYMPH % 19.6 % (9.0-44.0); LYMPHOCYTE # 1.2 TH/MM3 (1.0-4.8); MEAN CORPUSCULAR HEMOGLOBIN 29.2 PG (27.0-34.0); NEUT % 67.3 % (16.0-70.0); PLATELET COUNT 231 TH/MM3 (150-450); RED BLOOD COUNT 4.23 MIL/MM3 (4.50-5.90); RED CELL DISTRIBUTION WIDTH 13.9 % (11.6-17.2); WHITE BLOOD COUNT 6.3 TH/MM3 (4.0-11.0)
[2017-02-25 09:13] LABS: INTERNATIONAL NORMALIZED RATIO 0.9 RATIO; PROTHROMBIN TIME - PATIENT 10.4 SEC (9.8-11.6)
[2017-02-25 09:18] LABS: POTASSIUM 3.7 MEQ/L (3.5-5.1)
--- NOTE | 2017-02-25 10:09 | PD ---
HPI Chief Complaint: Bleeding Time Seen by Provider: 08:46 Travel History International Travel<30 days: No Contact w/Intl Traveler<30days: No Traveled to known affect area: No History of Present Illness HPI Diagnoses an 86-year-old male with a history of hypothyroidism, hypertension, who presents here with complaints of bleeding from his varicose vein site on his right lateral ankle. According to the patient he's had a intermittent bleed of his right lower extremity from his varicose vein. He was last seen yesterday by a slack line yarder who wrapped it up and told him to come back in one week. The patient states that when he went to replace the dressing, it started to profusely bleed. states that the bed has a large amount of blood all over it. The patient has had multiple eschars, off causing bleeding. There are no other complaints at the time of my examination. 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) Cardiac Catheterization: No Cardiovascular Problems: Yes (IRREGULAR HEARTBEAT, PVC'S) High Cholesterol: No Congestive Heart Failure: No Diabetes: No Endocrine: No Gastrointestinal Disorders: Yes (ACID REFLUX, HIATAL HERNIA, HX OF ESOPHAGEAL DILATION) Genitourinary: Yes (BPH) Hepatitis: No Hiatal Hernia: Yes Immune Disorder: No Inguinal Hernia: Yes (REPAIR X3) Medical other: Yes (POSSIBLE HERNIA L SIDE) Musculoskeletal: Yes (SCOLIOSIS, ARTHRITIS, LOWER BACK PAIN, STIFF NECK) Psychiatric: Yes (SLIGHTLY CLAUSTROPHOBIC ) Respiratory: Yes (SLEEP APNEA, HASN'T USED CPAP FOR SEVERAL YEARS) Thyroid Disease: No Past Surgical History Abdominal Surgery: Yes (EVELIN INGUINAL HERNIA REPAIRS) AICD: No Coronary Artery Bypass Graft: No Eye Surgery: Yes (BILATERAL CATARACT SURGERY) Joint Replacement: No Pacemaker: No Social History Alcohol Use: No Tobacco Use: No Substance Use: No Allergies-Medications (Allergen,Severity, Reaction): Coded Allergies: penicillin G (Unverified Adverse Reaction, Intermediate, STOMACH CRAMPING , 02/04/17) Reported Meds & Prescriptions Reported Meds & Active Scripts Active Zofran (Ondansetron HCl) 4 Mg Tab 4 Mg PO Q6HR PRN Reported Namenda (Memantine) 10 Mg Tab 10 Mg PO BID Levothyroxine (Levothyroxine Sodium) 25 Mcg Tab 25 Mcg PO DAILY Citrucel (Methylcellulose) 500 Mg Tab 2 Tab PO DAILY PRN Vitamin B-12 (Cyanocobalamin) 500 Mcg Tab 500 Mcg PO DAILY Vitamin D3 (Cholecalciferol) 1,000 Unit Tab 1,000 Units PO DAILY Aciphex (Rabeprazole Sodium) 20 Mg Tab 20 Mg PO DAILY Metoprolol Tartrate 25 Mg Tab 25 Mg PO DAILY Neurontin (Gabapentin) 600 Mg Tab 600 Mg PO DAILY Doxepin (Doxepin HCl) 75 Mg Cap 75 Mg PO DAILY Review of Systems Except as stated in HPI: all other systems reviewed are Neg General / Constitutional: No: Fever, Chills HENT: No: Headaches, Lightheadedness, Neck Pain Cardiovascular: No: Chest Pain or Discomfort, Palpitations Respiratory: No: Cough, Shortness of Breath Gastrointestinal: No: Nausea, Vomiting, Abdominal Pain Musculoskeletal: Positive: Other (bleeding from the right lateral ankle at a varicosity site.), No: Weakness Skin: Positive Lesions (right lateral ankle varicose vein bleeding.) Neurologic: No: Weakness, Dizziness, Headache Physical Exam Narrative GENERAL: Well-nourished, well-developed patient, in no acute respiratory distress. SKIN: Focused skin assessment warm/dry. HEAD: Normocephalic last atraumatic. EYES: No injection or drainage. NECK: Supple, trachea midline. CARDIOVASCULAR: Regular rate and rhythm without murmurs, gallops, or rubs. RESPIRATORY: Breath sounds equal bilaterally. No accessory muscle use. GASTROINTESTINAL: Abdomen soft, non-tender, nondistended. MUSCULOSKELETAL: Chronic venous stasis changes in the bilateral lower extremity is. On examination the patient's right lateral ankle, there is a opened bleeding vein site noted just at the malleolus site. As no evidence of cellulitis. There was oozing of blood noted. NEUROLOGICAL: Awake and alert. Cranial nerves II through XII intact. Motor grossly within normal limits. Five out of 5 muscle strength in all muscle groups. Normal speech. Data Data Last Documented VS Vital Signs Date Time Temp Pulse Resp B/P (MAP) Pulse Ox O2 Delivery O2 Flow Rate FiO2 02/25/17 15:14 70 18 145/70 (95) 97 Nasal Cannula 2.00 02/25/17 08:22 97.9 Orders Orders Complete Blood Count With Diff (02/25/17 08:46) Basic Metabolic Panel (Bmp) (02/25/17 08:46) Prothrombin Time / Inr (Pt) (02/25/17 08:46) Act Partial Throm Time (Ptt) (02/25/17 08:46) Iv Access Insert/Monitor (02/25/17 08:46) Ecg Monitoring (02/25/17 08:46) Oximetry (02/25/17 08:46) Admit Order (Ed Use Only) (02/25/17 17:13) Labs Laboratory Tests Test 02/25/17 08:40 White Blood Count 6.3 TH/MM3 Red Blood Count 4.23 MIL/MM3 Hemoglobin 12.4 GM/DL Hematocrit 36.4 % Mean Corpuscular Volume 86.0 FL Mean Corpuscular Hemoglobin 29.2 PG Mean Corpuscular Hemoglobin Concent 34.0 % Red Cell Distribution Width 13.9 % Platelet Count 231 TH/MM3 Mean Platelet Volume 8.5 FL Neutrophils (%) (Auto) 67.3 % Lymphocytes (%) (Auto) 19.6 % Monocytes (%) (Auto) 10.0 % Eosinophils (%) (Auto) 1.6 % Basophils (%) (Auto) 1.5 % Neutrophils # (Auto) 4.2 TH/MM3 Lymphocytes # (Auto) 1.2 TH/MM3 Monocytes # (Auto) 0.6 TH/MM3 Eosinophils # (Auto) 0.1 TH/MM3 Basophils # (Auto) 0.1 TH/MM3 CBC Comment DIFF FINAL Differential Comment Prothrombin Time 10.4 SEC Prothromb Time International Ratio 0.9 RATIO Activated Partial Thromboplast Time 23.0 SEC Blood Urea Nitrogen 9 MG/DL Creatinine 0.75 MG/DL Random Glucose 109 MG/DL Calcium Level 8.9 MG/DL Sodium Level 129 MEQ/L Potassium Level 3.7 MEQ/L Chloride Level 93 MEQ/L Carbon Dioxide Level 29.0 MEQ/L Anion Gap 7 MEQ/L Estimat Glomerular Filtration Rate 99 ML/MIN [facility] Medical Decision Making Medical Screen Exam Complete: Yes Emergency Medical Condition: Yes Differential Diagnosis Varicose vein ulceration versus ulcer versus abrasion versus displaced eschar Narrative Course 86-year-old male with a history of 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 The patient had been seen by a slack line yarder yesterday who wrapped it and stated he would see him back in one week. Patient reports that the varicose pain started bleeding again and it was difficult to stop the bleeding. He presents here in no acute distress. 1 and wrapped with a dressing, there was still oozing of the vessel. Case was discussed with Dr. Rizo, who is come down to see the patient, who would make the patient to his service. He intends on doing a surgical ablation of his right varicose vein tomorrow. Diagnosis Primary Impression: recurrent bleeding of right lower extremity varicose vein. Admitting Information Admitting Physician Requests: Admit Torrey Romero MD Feb 25, 2017 10:09
[2017-02-25] MEDS ORDERED: NALOXONE HCL 0.4 MG/ML AMP IV PUSH PRN (18:00)
[2017-02-25] MEDS ORDERED: PANTOPRAZOLE SOD 40 MG DELAYED RELEASE TAB PO SCH (18:00)
[2017-02-25] MEDS ORDERED: SODIUM CHLORIDE 0.9% FLUSH 10 ML FLUSH IV FLUSH PRN (18:00)
[2017-02-25] MEDS ORDERED: Post-op Orders (for Pharmacy) MISC XX ONE (18:00)
[2017-02-25] MEDS ORDERED: ONDANSETRON HCL 4 MG/2 ML VIAL IV PUSH PRN (18:00)
--- NOTE | 2017-02-25 18:04 | MH ---
cc: [facility] DATE [facility] ADMISSION 02/25/[address] 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 HISTORY OF PRESENT ILLNESS This 86-year-old male presents to the emergency room with bleeding from an ulcer on the right lateral malleolus area, just below it. The patient apparently went to see call center specialist that shaved off something and it started bleeding and the patient came to the emergency room 24 hours later. He states this is a second bleed and the house looks like somebody got killed in it. This was wrapped up and I was asked to see the patient for consult, questions about source of this. PAST SURGICAL HISTORY Is that of bilateral inguinal hernia repairs with redo, bilateral cataract surgery. PAST MEDICAL HISTORY Hypertension. MEDICATIONS The patient is on: 1. Synthroid. 2. Metoprolol. 3. Neurontin. 4. Doxepin. 5. Namenda. SOCIAL HISTORY Does not smoke or drink. ALLERGIES PENICILLIN. PHYSICAL EXAMINATION GENERAL: Physical examination reveals a pleasant 86-year-old gentleman. HEENT: Normocephalic. No trauma to the head. Pupils equally reactive. Extraocular muscles intact. NECK: Neck is supple, bilateral carotid pulses, bilateral carotid bruits 3-6. CHEST: Bilateral breath sounds, decreased over both lung bermudez consistent with some degree of COPD. The patient has loss of chest ___ musculature and atrophy consistent with either COPD or senile emphysema. HEART: Regular rhythm. ABDOMEN: Abdomen is soft. No rebound or guarding. No masses. EXTREMITIES: Grossly within normal limits. The patient has actually palpable femoral popliteal, dorsalis pedis and posterior tibial pulses bilateral. On the right foot, in the lateral aspect of the foot, just below the lateral malleolus, there is a bleeding site which appears to be arterial in origin or an arteriovenous malformation in the area. PLAN At this point the patient will be prepared and taken to the operating room for repair of the same. This is not a soft boarder in the sense of a venous stasis type condition where the venous perforators come out and bleed. This is way too low for the same, so we will treat this a little differently. The patient will be admitted, treated and taken to the operating room tomorrow. Margarita STEEL /5:48 PM /5:55 PM
[2017-02-25] MEDS ORDERED: ONDANSETRON ODT 4 MG TAB PO PRN (18:30)
[2017-02-25] MEDS: SODIUM CHLOR 0.9% 1000 ML INJ 1,000 ML IV SCH ×2 (18:31→23:14)
[2017-02-25] MEDS ORDERED: CITRUCEL 500 MG PO PRN (18:45)
[2017-02-25] MEDS: DOCUSATE SODIUM 100 MG CAP PO SCH (23:15)
[2017-02-25] MEDS: MEMANTINE HCL 10 MG TAB PO SCH (23:15)
[2017-02-25] MEDS: oxyCODONE/ACETAMINOPHEN 5 MG/325 MG TAB PO PRN (23:16)
[2017-02-25] MEDS: SODIUM CHLORIDE 0.9% FLUSH 10 ML FLUSH IV FLUSH SCH (23:16)
[2017-02-26 00:34] VITALS: BP 133/65; PULSE 86; RESP 18; TEMP 98.2; O2SAT 97
[2017-02-26] MEDS: LEVOTHYROXINE SODIUM 25 MCG TAB PO SCH (05:15)
[2017-02-26] MEDS: oxyCODONE/ACETAMINOPHEN 5 MG/325 MG TAB PO PRN ×2 (05:15→09:34)
[2017-02-26 05:16] VITALS: BP 131/71; PULSE 79; RESP 18; TEMP 97.9; O2SAT 99
[2017-02-26 08:10] VITALS: BP 137/69; PULSE 70; RESP 17; TEMP 97.7; O2SAT 94
[2017-02-26] MEDS ORDERED: DOXEPIN HCL 25 MG CAP PO SCH (09:00)
[2017-02-26] MEDS: PANTOPRAZOLE SOD 20 MG DELAYED RELEASE TAB PO SCH (09:00)
[2017-02-26] MEDS: CHOLECALCIFEROL (VIT D3) 1000 UNIT TAB PO SCH (09:00)
[2017-02-26] MEDS: DOCUSATE SODIUM 100 MG CAP PO SCH ×2 (09:00→20:33)
[2017-02-26] MEDS: SODIUM CHLORIDE 0.9% FLUSH 10 ML FLUSH IV FLUSH SCH ×2 (09:00→20:45)
[2017-02-26] MEDS ORDERED: GABAPENTIN 300 MG CAP PO SCH (09:00)
[2017-02-26] MEDS: CYANOCOBALAMIN 1,000 MCG TAB PO SCH (09:00)
[2017-02-26] MEDS: MEMANTINE HCL 10 MG TAB PO SCH ×2 (09:00→20:34)
[2017-02-26] MEDS: METOPROLOL TARTRATE 25 MG TAB PO SCH (09:31)
--- NOTE | 2017-02-26 09:58 | PD.CONS ---
HPI Service [facility] Hospitalists Consult Requested By Margarita Rizo M.D. Reason for Consult Medical management. Primary Care Physician Non-Staff Diagnoses: History of Present Illness Written by Garret Palma PA-C, acting as scribe for Dr. Damon Sevilla on 02/26/17 at 09:45. Mr. Sim is 86 yo, with history inclusive of varicose veins, hypothyroidism, hypertension, PVC's, dementia, melanoma (x2), and sleep apnea ( without use of CPAP). Mr. Sim was a poor historian and as such history was obtained by reviewing the medical record. Reportedly, Mr. Sim went to his store standards associate three days ago and had a procedure to remove a callus on his right lateral malleolus. The next day, he developed significant bleeding from the pt and his were unable to control at home. They came to [facility] that day (02/25/17) for evaluation and management of his condition. Dr. Rizo was consulted and he is planning to take Mr. Sim to the OR on the afternoon of 02/26/17to address the bleeding issue. The Hospitalist team was consulted to medically manage Mr. Sim's health issues. At time of interview, Mr. Sim was laying abed. He was awake and knew where he was located and the date and the nature of his admission to [place]. However, he was unable to provide significant health history other to say he had varicose veins and had a bleeding issue "like this" in the past. When asked about family medical history, he was able to say he had parents and sister, but not if they were living or discuss their health or provide information about general family health conditions. A limited review of systems was obtained from the patient in which he denied nausea, vomiting, diarrhea, decreased appetite, malaise, cough, shortness of breath. Pt repeated stated he was to go to "get surgery this afternoon." Review of Systems ROS Limitations: Poor Historian Constitutional: DENIES: Change in appetite Endocrine: DENIES: Polyphagia Ears, nose, mouth, throat: DENIES: Throat pain Respiratory: DENIES: Apneas, Cough, Shortness of breath Cardiovascular: DENIES: Chest pain, Syncope Gastrointestinal: DENIES: Abdominal pain, Diarrhea, Nausea, Vomiting Psychiatric: COMPLAINS OF: Confusion Past Family Social History Allergies: Coded Allergies: penicillin G (Unverified Adverse Reaction, Intermediate, STOMACH CRAMPING , 02/04/17) Past Medical History PMH was obtained from medical record as pt is a poor historian Heart Rhythm Problems: Yes (PVC'S) 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) Cardiac Catheterization: No Cardiovascular Problems: Yes (IRREGULAR HEARTBEAT, PVC'S) High Cholesterol: No Congestive Heart Failure: No Diabetes: No Endocrine: No Gastrointestinal Disorders: Yes (ACID REFLUX, HIATAL HERNIA, HX OF ESOPHAGEAL DILATION) Genitourinary: Yes (BPH) Hepatitis: No Hiatal Hernia: Yes Immune Disorder: No Inguinal Hernia: Yes (REPAIR X3) Medical other: Yes (POSSIBLE HERNIA L SIDE) Musculoskeletal: Yes (SCOLIOSIS, ARTHRITIS, LOWER BACK PAIN, STIFF NECK) Psychiatric: Yes (SLIGHTLY CLAUSTROPHOBIC ) Respiratory: Yes (SLEEP APNEA, HASN'T USED CPAP FOR SEVERAL YEARS) Thyroid Disease: No Past Surgical History Previous Surgical history obtained from medical record due to pt being a poor historian Inguinal hernia repair x3 Bilateral cataracts. Reported Medications Reported Meds & Active Scripts Active Zofran (Ondansetron HCl) 4 Mg Tab 4 Mg PO Q6HR PRN Reported Namenda (Memantine) 10 Mg Tab 10 Mg PO BID Levothyroxine (Levothyroxine Sodium) 25 Mcg Tab 25 Mcg PO DAILY Citrucel (Methylcellulose) 500 Mg Tab 2 Tab PO DAILY PRN Vitamin B-12 (Cyanocobalamin) 500 Mcg Tab 500 Mcg PO DAILY Vitamin D3 (Cholecalciferol) 1,000 Unit Tab 1,000 Units PO DAILY Aciphex (Rabeprazole Sodium) 20 Mg Tab 20 Mg PO DAILY Metoprolol Tartrate 25 Mg Tab 25 Mg PO DAILY Neurontin (Gabapentin) 600 Mg Tab 600 Mg PO DAILY Doxepin (Doxepin HCl) 75 Mg Cap 75 Mg PO DAILY Active Ordered Medications Current Medications Medications (Trade) Dose Ordered Sig/Anna Marie Route Start Time Stop Time Status Last Admin Sodium Chloride 1,000 ml @ 60 mls/hr [id number] IV 02/25/17 18:00 02/25/17 23:14 (NS Flush) 2 ml UNSCH PRN IV FLUSH 02/25/17 18:00 (NS Flush) 2 ml BID IV FLUSH 02/25/17 21:00 02/25/17 23:16 (Zofran Inj) 4 mg Q6H PRN IV PUSH 02/25/17 18:00 (Colace) 100 mg BID PO 02/25/17 21:00 02/25/17 23:15 (Percocet 5-325 Mg) 1 tab Q6H PRN PO 02/25/17 18:00 02/26/17 05:15 (Narcan Inj) 0.4 mg UNSCH PRN IV PUSH 02/25/17 18:00 (Vitamin D3) 1,000 units DAILY PO 02/26/17 09:00 (Vitamin B12) 500 mcg DAILY PO 02/26/17 09:00 (SINEquan) 75 mg DAILY PO 02/26/17 09:00 (Neurontin) 600 mg DAILY PO 02/26/17 09:00 (Synthroid) 25 mcg DAILY@0600 PO 02/26/17 06:00 02/26/17 05:15 (Namenda) 10 mg BID PO 02/25/17 21:00 02/25/17 23:15 (Lopressor) 25 mg DAILY PO 02/26/17 09:00 (Protonix) 20 mg DAILY PO 02/26/17 09:00 Patient Own Medication PT OWN MED: CITRUCEL (METHYLCELLULO... DAILY PRN PO 02/25/17 18:45 Future Hold (Zofran Odt) 4 mg Q6HR PRN PO 02/25/17 18:30 Family History Pt was unable to provide family history, as noted in HPI. Social History Medical records indicate pt does drink alcohol on occasion. Tobacco use history was denied. Illicit/recreational drug use history was denied. Physical Exam Vital Signs Vital Signs Date Time Temp Pulse Resp B/P (MAP) Pulse Ox O2 Delivery O2 Flow Rate FiO2 02/26/17 08:10 97.7 70 17 137/69 (91) 94 02/26/17 05:16 97.9 79 18 131/71 (91) 99 02/26/17 03:28 97 Nasal Cannula 2.00 02/26/17 00:34 98.2 86 18 133/65 (87) 97 02/25/17 22:45 98 Nasal Cannula 2.00 02/25/17 22:14 98 Nasal Cannula 4.00 02/25/17 22:12 98 02/25/17 22:10 82 Nasal Cannula 4.00 02/25/17 21:40 97.7 82 18 136/66 (89) 77 02/25/17 21:19 02/25/17 17:59 70 20 123/73 (90) 97 Nasal Cannula 2.00 02/25/17 15:14 70 18 145/70 (95) 97 Nasal Cannula 2.00 02/25/17 12:10 69 16 130/69 (89) 97 Nasal Cannula 2.00 02/25/17 09:48 20 97 Room Air Physical Exam GENERAL: This is a well-nourished, well-developed patient, in no apparent distress. SKIN: No rashes, ecchymoses or lesions. Cool and dry. Right lower extremity wrapped in Kerlix around reported wound site. HEAD: Atraumatic. Normocephalic. EYES: Pupils equal round and reactive. Extraocular motions intact. No scleral icterus. No injection or drainage. ENT: Nose without bleeding or purulent drainage. Airway patent. NECK: Trachea midline. No lymphadenopathy. Supple and nontender. CARDIOVASCULAR: Regular rate and rhythm without murmurs, gallops, or rubs. Good right pedal pulse. RESPIRATORY: Clear to auscultation. Breath sounds equal bilaterally. No wheezes , rales, or rhonchi. GASTROINTESTINAL: Abdomen soft, non-tender, nondistended. No hepato- splenomegaly or guarding. MUSCULOSKELETAL: Extremities without clubbing, cyanosis, or edema. NEUROLOGICAL: Awake and alert. Cranial nerves II through XII intact. Motor and sensory grossly within normal limits. Five out of 5 muscle strength in all muscle groups. Speech clear and fluent. Pt evidenced poor memory. PSYCHIATRIC: Anxiety initially not noted upon examination, yet pt became anxious afterwards. Pt was pleasant and cooperative. Speech was clear and fluent. Result Diagram: 02/25/1783902/25/17839 Assessment and Plan Assessment and Plan Mr. Sim is 86 yo, with history inclusive of varicose veins, hypothyroidism, hypertension, PVC's, dementia, melanoma (x2), and sleep apnea ( without use of CPAP). Mr. Sim was a poor historian and as such history was obtained by reviewing the medical record. Reportedly, Mr. Sim went to his store standards associate three days ago and had a procedure to remove a callus on his right lateral malleolus. The next day, he developed significant bleeding from the pt and his were unable to control at home. They came to [facility] that day ( 02/25/17) for evaluation and management of his condition. Dr. Rizo was consulted and he is planning to take Mr. Sim to the OR on the afternoon of 02/26/17 to address the bleeding issue. The Hospitalist team was consulted to medically manage Mr. Sim's health issues. Vascular injury -Repair and follow-up treatment per Dr. Rizo. -Pain management, per Dr. Rizo Hypertension -Metoprolol 25 mg po daily. Hypothyroidism -Levothyroxine 25 mcg po daily Dementia -Namenda 10 mg po BID Anxiety -Lorazepam 0.5 mg po q 8 hr prn Depression -Doxepin 75 mg po daily Diet -NPO in advance of surgery, regular post surgery. This note was transcribed by kusum Palma PA-C . I, Dr. Christiana Sevilla personally performed the history, physical exam, and medical decision making; and confirmed the accuracy of the information in the transcribed note. Authenticated by Dr. Christiana Sevilla on 02/26/17 at 09:45. Code Status Full code Discussed Condition With Pt, RN, and Garret Shetty Jr. Feb 26, 2017 09:58 Christiana Sevilla MD Feb 26, 2017 10:05
[2017-02-26] MEDS ORDERED: LORazepam 0.5 MG TAB PO PRN (10:00)
[2017-02-26] MEDS ORDERED: ACETAMINOPHEN 1000 MG/100 ML 100 ML IV ONE (11:43)
[2017-02-26] MEDS ORDERED: ceFAZolin INJ 1,000 MG VIAL IV ONE (12:37)
[2017-02-26] MEDS ORDERED: DO NOT ADM ANY ANTICOAGULANT DRUGS PRN (13:45)
[2017-02-26 16:08] VITALS: BP 119/66; PULSE 81; RESP 16; TEMP 98.1; O2SAT 97
--- NOTE | 2017-02-26 17:34 | MP ---
cc: [facility] DATE OF SURGERY: 02/26/2017. PREOPERATIVE DIAGNOSIS: Bleeding varicose vein ulcer of the right lower leg/ankle. POSTOPERATIVE DIAGNOSIS: Bleeding varicose vein ulcer of the right lower leg/ankle. OPERATIVE PROCEDURE PERFORMED: Ligation of varicose veins of the right ankle subfascial ligation of a lateral crm business analyst and excision of the bleeding ulcer. SURGEON: Margarita Rizo M.D. ANESTHESIA: General. ESTIMATED BLOOD LOSS: 30 cc. INDICATIONS FOR THE PROCEDURE: This pleasant 86-year-old gentleman presented to the emergency room for repeated bleeds from the right ankle; the last one occurred after he went to the wet wash assembler for something and at that time apparently according to his there was a lot of blood everywhere in the house. When the patient came to the emergency room, this was oozing slowly. A dressing was applied at that time. DESCRIPTION OF THE PROCEDURE IN DETAIL: The patient was now prepped and draped in the usual fashion. The area was exposed. There was a small oozing ulcer on the lateral aspect of the right foot/ankle. This was surrounded by fairly large varicose veins. It is unusual to see patients with varicose veins this low in the leg and the foot but there it is. 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 The veins supplying the veins supplying the ulcerated area were now identified and then small incisions were made with a #15 blade over these varicosities which were then isolated and placed on 2-0 Vicryl. There were four areas of feeding of the ulcer and these were laid out almost perfectly symmetrically at twelve and six o'clock and three and nine o'clock. These veins were now ligated and divided in the middle portions of the veins where they came together was now removed and stripped with the skin overlying the ulcer. The fascia is incised and removed with the ulcer and a resorbable stitch is placed controlling the crm business analyst oozing. The area was irrigated with copious amounts of saline. The skin was undermined and then closed with 3-0 Prolene interrupted stitches. The patient tolerated the procedure well. Margarita HANCOCK/LANDY /1:44 PM /5:31 PM MTDIsabell
[2017-02-26 22:17] VITALS: BP 127/69; PULSE 85; RESP 18; TEMP 96; O2SAT 98
[2017-02-27 01:21] VITALS: BP 114/68; PULSE 86; RESP 18; TEMP 98; O2SAT 98
[2017-02-27 04:32] VITALS: BP 131/72; PULSE 78; RESP 18; TEMP 97.8; O2SAT 100
[2017-02-27] MEDS: LEVOTHYROXINE SODIUM 25 MCG TAB PO SCH (05:23)
[2017-02-27 08:29] VITALS: BP 137/73; PULSE 85; RESP 17; TEMP 98.1; O2SAT 97
[2017-02-27] MEDS: PANTOPRAZOLE SOD 20 MG DELAYED RELEASE TAB PO SCH (09:00)
[2017-02-27] MEDS: SODIUM CHLORIDE 0.9% FLUSH 10 ML FLUSH IV FLUSH SCH (09:00)
[2017-02-27] MEDS: METOPROLOL TARTRATE 25 MG TAB PO SCH (09:00)
[2017-02-27] MEDS: CHOLECALCIFEROL (VIT D3) 1000 UNIT TAB PO SCH (09:00)
[2017-02-27] MEDS: DOCUSATE SODIUM 100 MG CAP PO SCH (09:00)
[2017-02-27] MEDS: MEMANTINE HCL 10 MG TAB PO SCH (09:00)
[2017-02-27] MEDS: CYANOCOBALAMIN 1,000 MCG TAB PO SCH (09:00)
--- NOTE | 2017-02-27 09:31 | HHI.PR ---
Subjective Remarks Eating breakfast. He is more alert today, less anxious. No bleeding from the wound. Status post surgery yesterday by Dr. Rizo Diagnosis improved is able to eat. at bedside. Denies fever or chills. No pain at this time. Denies chest pain shortness of breath. No palpitations. Objective Vitals Vital Signs Date Time Temp Pulse Resp B/P (MAP) Pulse Ox O2 Delivery O2 Flow Rate FiO2 02/27/17 08:29 98.1 85 17 137/73 (94) 97 02/27/17 04:32 97.8 78 18 131/72 (91) 100 02/27/17 01:21 98.0 86 18 114/68 (83) 98 02/26/17 22:17 96.0 85 18 127/69 (88) 98 02/26/17 22:00 98 Room Air 02/26/17 16:08 98.1 81 16 119/66 (83) 97 02/26/17 14:30 98.1 77 14 124/71 (88) 99 Nasal Cannula 2 02/26/17 14:15 80 14 125/72 (89) 99 Nasal Cannula 2 02/26/17 14:00 80 14 127/68 (87) 99 Nasal Cannula 2 02/26/17 13:45 82 14 133/76 (95) 99 Nasal Cannula 2 02/26/17 13:30 85 14 137/76 (96) 98 Nasal Cannula 2 02/26/17 13:15 87 14 128/73 (91) 97 Nasal Cannula 2 02/26/17 13:00 97.5 86 14 128/70 (89) 98 Nasal Cannula 2 I/O 02/26/17 02/26/17 02/26/17 02/27/17 02/27/17 02/27/17 07:00 15:00 23:00 07:00 15:00 23:00 Intake Total 1000 ml Output Total 350 ml 530 ml Balance -350 ml 470 ml Intake Other 1000 ml Output Urine Total 350 ml 500 ml Estimated Blood Loss 30 ml # Voids 1 1 Result Diagram: 02/25/1783902/25/17839 Objective Remarks GENERAL: This is a frail 86-year-old male ,well-nourished, well-developed patient, in no apparent distress. SKIN: No rashes, ecchymoses or lesions. Cool and dry. Right lower extremity wrapped in Kerlix around reported wound site. CARDIOVASCULAR: Regular rate and rhythm without murmurs, gallops, or rubs. Good right pedal pulse. RESPIRATORY: Clear to auscultation. Breath sounds equal bilaterally. No wheezes , rales, or rhonchi. GASTROINTESTINAL: Abdomen soft, non-tender, nondistended. No hepato- splenomegaly or guarding. MUSCULOSKELETAL: Extremities without clubbing, cyanosis, or edema. NEUROLOGICAL: Awake and alert. Cranial nerves II through XII intact. Motor and sensory grossly within normal limits. Five out of 5 muscle strength in all muscle groups. Speech clear and fluent. Pt evidenced poor memory. PSYCHIATRIC: Anxiety initially not noted upon examination, yet pt became anxious afterwards. Pt was pleasant and cooperative. Speech was clear and fluent. A/P Assessment and Plan Mr. Sim is 86 yo, with history inclusive of varicose veins, hypothyroidism, hypertension, PVC's, dementia, melanoma (x2), and sleep apnea ( without use of CPAP). Mr. Sim was a poor historian and as such history was obtained by reviewing the medical record. Reportedly, Mr. Sim went to his education reviewer three days ago and had a procedure to remove a callus on his right lateral malleolus. The next day, he developed significant bleeding from the pt and his were unable to control at home. [place] came [place] [facility] [place] ( [place] for evaluation and management of his condition. Dr. Rizo was consulted and he is planning to take Mr. Sim to the OR on the afternoon of 02/26/17 to address the bleeding issue. The Hospitalist team was consulted to medically manage Mr. Sim's health issues. Vascular injury Repair and follow-up treatment per Dr. Rizo. Pain management, per Dr. Rizo Hypertension-Metoprolol 25 mg po daily. Hypothyroidism-Levothyroxine 25 mcg po daily Dementia-Namenda 10 mg po BID Anxiety-Lorazepam 0.5 mg po q 8 hr prn Depression-Doxepin 75 mg po daily DVT ppx per surgeon Discussed with the patient, nurse, at bedside. Christiana Sevilla MD Feb 27, 2017 09:31
[2017-02-27] MEDS ORDERED: OXYC1TAB63 PO (10:52)
[2017-02-27 12:00] VITALS: O2SAT 97
[2017-02-27] MEDS: oxyCODONE/ACETAMINOPHEN 5 MG/325 MG TAB PO PRN (12:30)
[2017-02-27] MEDS ORDERED: DOXEPIN HCL 25 MG CAP PO SCH (13:00)
--- NOTE | 2017-02-27 13:05 | EKG ---
Date Performed: 02/26/2017 Time Performed: 11:53:06 PTAGE: 86 years EKG: Sinus rhythm WITH FIRST DEGREE AV BLOCK ABNORMAL ECG PREVIOUS TRACING : 02/03/2017 22.13 Since previous tracing, VA interval is more prolonged; othe rwise, no significant change. DOCTOR: Zachary Valenzuela Interpretating Date/Time 02/27/2017 13:04:30
--- NOTE | 2017-02-27 14:35 | PD.CAR.PN ---
CVT Progress Note Subjective/Hospital Course: 86-year-old male status post resection of a venous ulcer of the lateral surface of the right ankle and varicose vein stripping of the supply of the same Patient had complex dressing applied yesterday to be removed in my office coming Tuesday Patient doing well this morning Unfortunately patient states that at some point throughout the night he needed to go to the bathroom and despite repeated calls nobody unanswered. He normally walks with a walker, which was was in the corner of the room where he couldn't reach it without assistance. As a result this 86-year-old patient, who just had general anesthesia few hours before, got out of bed himself and tried to reach the bathroom In the process he stumbled, slipped on hospital floor and almost fell. Consequently he disturbed the dressing of the foot. I was not told any of this other than by the patient. I redressed the foot and patient is being discharged with follow-up in my office Objective: Vital Signs Date Time Temp Pulse Resp B/P (MAP) Pulse Ox O2 Delivery O2 Flow Rate FiO2 02/27/17 12:00 97 Nasal Cannula 2.00 02/27/17 08:29 98.1 85 17 137/73 (94) 97 02/27/17 04:32 97.8 78 18 131/72 (91) 100 02/27/17 01:21 98.0 86 18 114/68 (83) 98 02/26/17 22:17 96.0 85 18 127/69 (88) 98 02/26/17 22:00 98 Room Air 02/26/17 16:08 98.1 81 16 119/66 (83) 97 02/26/17 14:30 98.1 77 14 124/71 (88) 99 Nasal Cannula 2 Result Diagram: 02/25/1740 02/25/1740 Margarita Rizo MD Feb 27, 2017 14:35
[2017-02-27] MEDS ORDERED: GABAPENTIN 300 MG CAP PO SCH (21:00)
== END 2017-02-27 14:58 | disposition home or self-care (01) | DRG 263 ==
LOC: NEPC 08:13 → NEDA 17:15 → N05A 21:24
PROVIDERS: ADMIT Surgery; ATTEND Surgery
PROC: 0JBN0ZZ Excision of Right Lower Leg Subcutaneous Tissue and Fascia, Open Approach (ICD-10-PCS; 2017-02-26)
PROC: 06DP0ZZ Extraction of Right Saphenous Vein, Open Approach (ICD-10-PCS; principal; 2017-02-26 11:55)
DX: I83.891 Varicose veins of right lower extremity with other complications (principal); L97.319 Non-pressure chronic ulcer of right ankle with unspecified severity; F03.90 Unspecified dementia, unspecified severity, without behavioral disturbance, psychotic disturbance, mood disturbance, and anxiety; I10 Essential (primary) hypertension; E03.9 Hypothyroidism, unspecified; G47.30 Sleep apnea, unspecified; K21.9 Gastro-esophageal reflux disease without esophagitis; M41.9 Scoliosis, unspecified; M19.90 Unspecified osteoarthritis, unspecified site; F32.9 Major depressive disorder, single episode, unspecified; F40.240 Claustrophobia; Z85.820 Personal history of malignant melanoma of skin; Z88.0 Allergy status to penicillin
CPT/HCPCS: 80048; 85025; 85610; 85730; 93005; 94150; J0131; J0690; J7030